=== PATIENT | male | born 1960 | race Two or more races ===

== ENCOUNTER 2020-07-26 04:25 | Inpatient (IN) | payer OTHER ==
[~2020-07-26] VITALS: Ht 172.7 cm; Wt 77.8 kg
[2020-07-26] MEDS ORDERED: ONDANSETRON HCL 4MG/2ML INJ IV STA (04:33)
[2020-07-26] MEDS ORDERED: SODIUM CHLORIDE 0.9% 1,000 ML IV ONE (04:45)
[2020-07-26 05:48] LABS: BASOPHILS % 0.1 % (0.0-2.0); LYMPHOCYTES % 10.3 % (20.0-50.0); MEAN CORPUSCULAR HEMOGLOBIN 29.9 pg (28.0-32.0); MEAN CORPUSCULAR VOLUME 89.5 fL (80.0-94.0); MEAN PLATELET VOLUME 10.8 fl (7.4-10.4); MONOCYTES % 3.1 % (2.0-8.0); NEUTROPHILS % 86.5 % (40.0-76.0); PLATELET 194 x1000/uL (130-400); RED BLOOD CELL COUNT 2.23 mill/uL (4.7-6.1); RED CELL DISTRIBUTION WIDTH 15.4 % (11.6-14.6)
[2020-07-26 05:50] LABS: HEMOGLOBIN. 6.7 g/dL (14.0-18.0)
[2020-07-26 05:53] LABS: CHLORIDE 108 mEq/L (98-107)
[2020-07-26 06:09] LABS: D-DIMER 6.18 mg/L FEU (<0.50); INR 1.1; PROTHROMBIN TIME 11.9 sec (9.6-11.0)
[2020-07-26] MEDS ORDERED: IOHEXOL-350 100 ML BOTTLE ONE (06:52)
[2020-07-26] MEDS ORDERED: ACETAMINOPHEN 325MG TABLET PO PRN (09:15)
[2020-07-26] MEDS ORDERED: DEXTROSE 50% WATER 50ML SYRINGE IV PRN (09:15)
[2020-07-26] MEDS ORDERED: ONDANSETRON HCL 4MG/2ML INJ IV PRN (09:15)
[2020-07-26] MEDS: BLOOD SUGAR DIAGNOSTIC STRIP TEST SCH ×3 (12:30→21:00)
[2020-07-26] MEDS ORDERED: SODIUM CHLORIDE 0.9% 500 ML IV ONE ×2 (12:30→17:30)
[2020-07-26] MEDS: SODIUM CHLORIDE 0.45% 1,000 ML IV SCH ×2 (13:49→23:16)
[2020-07-26] MEDS: INSULIN LISPRO 100 UNITS/ML SUBCUT SCH ×2 (13:52→21:00)
[2020-07-26 14:30] LABS: BASOPHILS % 0.1 % (0.0-2.0); LYMPHOCYTES % 14.5 % (20.0-50.0); MEAN CORPUSCULAR HEMOGLOBIN 29.7 pg (28.0-32.0); MEAN PLATELET VOLUME 10.9 fl (7.4-10.4); MONOCYTES % 8.6 % (2.0-8.0); NEUTROPHILS % 76.8 % (40.0-76.0); PLATELET 165 x1000/uL (130-400); RED BLOOD CELL COUNT 2.39 mill/uL (4.7-6.1); RED CELL DISTRIBUTION WIDTH 14.4 % (11.6-14.6)
[2020-07-26 14:37] LABS: HEMOGLOBIN. 7.1 g/dL (14.0-18.0)
[2020-07-26 18:45] VITALS: BP 96/76
[2020-07-26 20:00] VITALS: BP_SYST 113; BP_SYST 96; BP_DIAS 73; BP_DIAS 76
[2020-07-26] MEDS ORDERED: INSULIN GLARGINE UD 100 UNITS/ML SYR SUBCUT SCH (22:00)
[2020-07-26] MEDS ORDERED: AZITHROMYCIN 500 MG in DEXT 5% WATER 250 ML IV SCH (23:00)
[2020-07-27] VITALS (15 sets, daily range): BP systolic 108–134; BP diastolic 70–78
[2020-07-27 07:06] LABS: BASOPHILS % 0.1 % (0.0-2.0); HEMATOCRIT. 21.7 % (42.0-52.0); HEMOGLOBIN. 7.5 g/dL (14.0-18.0); MEAN CORPUSCULAR HEMOGLOBIN 30.6 pg (28.0-32.0); MEAN CORPUSCULAR VOLUME 88.2 fL (80.0-94.0); MEAN PLATELET VOLUME 10.8 fl (7.4-10.4); MONOCYTES % 5.1 % (2.0-8.0); NEUTROPHILS % 76.8 % (40.0-76.0); PLATELET 142 x1000/uL (130-400); RED BLOOD CELL COUNT 2.46 mill/uL (4.7-6.1); RED CELL DISTRIBUTION WIDTH 14.8 % (11.6-14.6)
[2020-07-27 07:10] LABS: CHLORIDE 110 mEq/L (98-107)
[2020-07-27] MEDS: BLOOD SUGAR DIAGNOSTIC STRIP TEST SCH ×4 (07:25→21:38)
[2020-07-27] MEDS ORDERED: IOHEXOL-300 100 ML BOTTLE ONE ×2 (09:33→13:27)
[2020-07-27] MEDS: INSULIN LISPRO 100 UNITS/ML SUBCUT SCH ×4 (10:03→21:00)
[2020-07-27] MEDS ORDERED: METF-414 MT (10:34)
[2020-07-27] MEDS ORDERED: APIX5TAB PO (10:35)
[2020-07-27] MEDS ORDERED: CEFAZOLIN 1000MG PREMIX 50 ML IV ONE ×2 (12:00→12:14)
[2020-07-27] MEDS: INSULIN GLARGINE UD 100 UNITS/ML SYR SUBCUT SCH ×2 (12:02→21:38)
[2020-07-27 12:57] LABS: TOTAL IRON BINDING CAPACITY 242 ug/dL (250-450)
[2020-07-27] MEDS ORDERED: SODIUM BICARBONATE 4% (2.4MEQ) 5ML VIAL IV ONE (13:27)
[2020-07-27] MEDS ORDERED: LIDOCAINE HCL 1% 20ML VIAL (Pyxis) INJ ONE (13:27)
[2020-07-27] MEDS: PANTOPRAZOLE SODIUM 40 MG/VIAL IV SCH ×2 (13:44→18:14)
[2020-07-27] MEDS: SODIUM CHLORIDE 0.45% 1,000 ML IV SCH (18:14)
[2020-07-27 20:46] LABS: HEMATOCRIT 24.6 % (42.0-52.0); HEMOGLOBIN 8.4 g/dL (14.0-18.0)
[2020-07-27 20:47] LABS: HEMATOCRIT 24.2 % (42.0-52.0); HEMOGLOBIN 8.4 g/dL (14.0-18.0)
[2020-07-27 20:54] LABS: INR 1.1; PROTHROMBIN TIME 11.4 sec (9.6-11.0)
[2020-07-27] MEDS: DEXT 5%/0.45% NACL 1000ML 1,000 ML IV SCH (21:51)
[2020-07-28] VITALS (10 sets, daily range): BP systolic 109–124; BP diastolic 66–79
[2020-07-28 01:45] LABS: HEMATOCRIT 22.5 % (42.0-52.0); HEMOGLOBIN 7.6 g/dL (14.0-18.0)
[2020-07-28] MEDS: BLOOD SUGAR DIAGNOSTIC STRIP TEST SCH ×4 (07:41→21:00)
[2020-07-28] MEDS: INSULIN LISPRO 100 UNITS/ML SUBCUT SCH ×4 (07:50→22:24)
[2020-07-28 08:28] LABS: CHLORIDE 109 mEq/L (98-107)
[2020-07-28] MEDS: PANTOPRAZOLE SODIUM 40 MG/VIAL IV SCH ×2 (09:00→19:08)
[2020-07-28] MEDS: DEXT 5%/0.45% NACL 1000ML 1,000 ML IV SCH (09:20)
[2020-07-28] MEDS: INSULIN GLARGINE UD 100 UNITS/ML SYR SUBCUT SCH ×2 (10:00→22:26)
[2020-07-28 10:27] LABS: BASOPHILS % 0.1 % (0.0-2.0); EOSINOPHILS % 0.1 % (0.0-5.0); HEMATOCRIT. 22.7 % (42.0-52.0); HEMOGLOBIN. 7.8 g/dL (14.0-18.0); LYMPHOCYTES % 17.8 % (20.0-50.0); MEAN CORPUSCULAR HEMOGLOBIN 29.6 pg (28.0-32.0); MEAN CORPUSCULAR VOLUME 86.7 fL (80.0-94.0); MEAN PLATELET VOLUME 10.2 fl (7.4-10.4); MONOCYTES % 0.9 % (2.0-8.0); NEUTROPHILS % 81.1 % (40.0-76.0); PLATELET 90 x1000/uL (130-400); RED BLOOD CELL COUNT 2.62 mill/uL (4.7-6.1); RED CELL DISTRIBUTION WIDTH 17.3 % (11.6-14.6)
[2020-07-28 14:45] LABS: HEMATOCRIT 28.6 % (42.0-52.0); HEMOGLOBIN 9.9 g/dL (14.0-18.0)
[2020-07-28] MEDS ORDERED: MIDAZOLAM HCL 5 MG/5 ML VIAL IV PRN (16:00)
[2020-07-28] MEDS ORDERED: FENTANYL CITRATE/PF 50MCG/ML 2ML VIAL ONE (16:00)
[2020-07-28] MEDS ORDERED: DIAZEPAM 5 MG/ML 2ML CPJ IV PRN (16:00)
[2020-07-28] MEDS ORDERED: MIDAZOLAM HCL 5 MG/5 ML VIAL ONE (16:00)
[2020-07-28] MEDS ORDERED: DIPHENHYDRAMINE 50MG/ML VIAL ONE (16:00)
[2020-07-28] MEDS ORDERED: DIAZEPAM 5 MG/ML 2ML CPJ ONE (16:01)
[2020-07-28] MEDS ORDERED: FENTANYL CITRATE/PF 50MCG/ML 2ML VIAL IV PRN (16:01)
[2020-07-28 18:07] LABS: HEMATOCRIT 25.4 % (42.0-52.0); HEMOGLOBIN 8.6 g/dL (14.0-18.0)
[2020-07-28] MEDS ORDERED: LANTUSUD SUBCUT (18:20)
[2020-07-28] MEDS ORDERED: SUCR1ORA15 PO (18:21)
[2020-07-28] MEDS ORDERED: OMEP40CA12 MT (18:21)
[2020-07-28 18:37] LABS: CARCINO EMBRYONIC ANTIGEN 1.2 ng/ml; FOLIC ACID (FOLATE) SERUM 6.9 ng/mL (>5.38)
[2020-07-28] MEDS: SUCRALFATE 1 G/10 ML UDC PO SCH ×2 (19:06→22:20)
[2020-07-29 00:28] VITALS: BP 117/73
[2020-07-29 00:43] LABS: HEMATOCRIT 23.4 % (42.0-52.0)
[2020-07-29 04:00] VITALS: BP 114/76
[2020-07-29] MEDS: INSULIN LISPRO 100 UNITS/ML SUBCUT SCH (07:50)
[2020-07-29 07:53] VITALS: BP 117/86
[2020-07-29] MEDS: BLOOD SUGAR DIAGNOSTIC STRIP TEST SCH (08:03)
[2020-07-29] MEDS: SUCRALFATE 1 G/10 ML UDC PO SCH (08:17)
[2020-07-29] MEDS: PANTOPRAZOLE SODIUM 40 MG/VIAL IV SCH (08:17)
[2020-07-29] MEDS ORDERED: INSU100I24 SQ (14:11)
== END 2020-07-29 09:00 | disposition home or self-care (01) | DRG 48 ==
LOC: ER 04:25 → 6WST 07:04 → ENRESERV 17:12
PROVIDERS: ADMIT Internal Medicine; ATTEND Internal Medicine
PROC: 30233N1 Transfusion of Nonautologous Red Blood Cells into Peripheral Vein, Percutaneous Approach (ICD-10-PCS; 2020-07-26)
PROC: 0DB78ZX Excision of Stomach, Pylorus, Via Natural or Artificial Opening Endoscopic, Diagnostic (ICD-10-PCS; principal; 2020-07-28)
PROC: 06H03DZ Insertion of Intraluminal Device into Inferior Vena Cava, Percutaneous Approach (ICD-10-PCS; 2020-07-28)
DX: G90.8 Other disorders of autonomic nervous system (principal); K26.4 Chronic or unspecified duodenal ulcer with hemorrhage; K29.71 Gastritis, unspecified, with bleeding; K22.11 Ulcer of esophagus with bleeding; D64.9 Anemia, unspecified; E87.8 Other disorders of electrolyte and fluid balance, not elsewhere classified; E43 Unspecified severe protein-calorie malnutrition; Z20.828 Contact with and (suspected) exposure to other viral communicable diseases; R56.9 Unspecified convulsions; E11.65 Type 2 diabetes mellitus with hyperglycemia; Z85.07 Personal history of malignant neoplasm of pancreas; Z85.038 Personal history of other malignant neoplasm of large intestine; Z68.26 Body mass index [BMI] 26.0-26.9, adult; Z90.49 Acquired absence of other specified parts of digestive tract; Z86.718 Personal history of other venous thrombosis and embolism; Z95.828 Presence of other vascular implants and grafts; I82.432 Acute embolism and thrombosis of left popliteal vein; K44.9 Diaphragmatic hernia without obstruction or gangrene
CPT/HCPCS: 36415; 37191; 71045; 71275; 74177; 78278; 80048; 80053; 82378; 82607; 82728; 82746; 82962; 83036; 83540; 83550; 83605; 84425; 84484; 85014; 85018; 85025; 85044; 85049; 85379; 85384; 86301; 86850; 86900; 86920; 87426; 88305; 93005; 93970; 99285; A9560; C1880; C9113; J0456; J0690; J1200; J1644; J1815; J2250; J2405; J3010; J3490; J7030; J7060; P9016; Q9967